=== PATIENT | female | born 1970 | race Caucasian/White ===

== ENCOUNTER 2020-11-26 12:27 | Inpatient (IN) ==
[2020-11-26] MEDS ORDERED: Orphenadrine 60 MG/2 ML VIAL IVP ONE (13:17)
[2020-11-26] MEDS ORDERED: Metoclopramide 10 MG/2 ML VIAL IVP ONE (13:17)
[2020-11-26 13:38] LABS: Basophils # 0.1 K/mcL (0.0-0.2); Basophils % 0.9 %; Eosinophils # 0.1 K/mcL (0.0-0.6); Eosinophils % 1.8 %; Hematocrit 45.8 % (35.3-44.9); Hemoglobin 14.9 g/dL (11.5-15.4); Immature Granulocytes % 0.1 % (0-4); Lymphocytes # 1.5 K/mcL (0.6-4.6); Lymphocytes % 19.1 %; Mean Corpuscular HGB Conc 32.5 g/dL (31.6-35.5); Mean Corpuscular Hemoglobin 31.8 pg (28.0-33.3); Mean Corpuscular Volume 97.9 fL (83.0-100.0); Mean Platelet Volume 10.1 fL (9.4-12.4); Monocytes # 0.5 K/mcL (0.0-1.3); Monocytes % 5.7 %; Neutrophils # 5.7 K/mcL (1.6-8.9); Platelet Count 246 K/mcL (140-400); Red Blood Count 4.68 M/mcL (3.82-4.97); Red Cell Distribution Width 12.6 % (11.5-14.5); Segmented Neutrophils % 72.4 %; White Blood Count 7.9 K/mcL (4.3-11.1)
[2020-11-26 14:08] LABS: Alanine Aminotransferase 7 Units/L (7-52); Albumin 4.7 g/dL (3.5-5.7); Albumin/Globulin Ratio 1.9 (1.1-2.2); Alkaline Phosphatase 65 Units/L (34-104); Aspartate Amino Transferase 10 Units/L (13-39); BUN/Creatinine Ratio 12 (6-26); Bilirubin,Total 0.3 mg/dL (0.3-1.0); Blood Urea Nitrogen 13 mg/dL (6-20); Calcium 9.7 mg/dL (8.6-10.3); Carbon Dioxide 25 mEq/L (23-29); Chloride 106 mEq/L (98-107); Globulin 2.5 g/dL (2.4-3.5); Glucose 97 mg/dL (70-105); Osmolality,Calculated 284 (280-300); Potassium 3.9 mEq/L (3.5-5.1); Sodium 137 mEq/L (136-145); Total Protein 7.2 g/dL (6.4-8.9); Troponin I < 0.03 ng/mL (< 0.04); eGFR For African Americans > 60 (> 60); eGFR For Non-African Americans 53 (> 60)
[2020-11-26] MEDS ORDERED: methylPREDNISolone 125 MG/2 ML VIAL IVP ONE (14:31)
[2020-11-26] MEDS ORDERED: Ondansetron 4 MG/2 ML VIAL IVP PRN (16:00)
[2020-11-26] MEDS ORDERED: Naloxone 0.4 MG/ML INJ IVP PRN (16:00)
[2020-11-26] MEDS ORDERED: Gadolinium Contrast Agent (WT Based) IV PRN (16:02)
[2020-11-26] MEDS ORDERED: *HR* LORazepam 2 MG/ML VIAL IVP ONE (18:03)
[2020-11-26] MEDS: Pantoprazole 40 MG VIAL IVP SCH (20:50)
[2020-11-26] MEDS: Melatonin 3 MG TABLET PO SCH (20:51)
[2020-11-26] MEDS: Acetaminophen/Butalbital/CaffeineTABLET PO PRN (20:52)
[2020-11-27 02:36] LABS: Bacteria,Urine Few per hpf (None-Few); Bilirubin,Urine Negative (Negative); Blood,Urine Negative (Negative); Clarity,Urine Clear (Clear); Color,Urine Light-Yellow (Yellow); Glucose,Urine (UA) >=1000 mg/dL (Normal); Ketones,Urine Negative (Negative); Leukocyte Esterase,Urine Negative (Negative); Mucus,Urine Few per lpf (None-Few); Nitrite,Urine Negative (Negative); PH,Urine 6.5 pH Units (5.0-8.0); Protein,Urine Negative (Neg-Trace); RBC,Urine 0-3 per hpf (0-3); Specific Gravity,Urine 1.014 (1.010-1.025); Squamous Epithelial Cell,Urine Few per hpf (None-Few); Urobilinogen,Urine Normal (Normal); WBC,Urine 0-3 per hpf (0-3)
[2020-11-27 02:41] LABS: Amphetamine Screen,Urine Negative ng/mL (Cutoff=1000); Barbiturate Screen,Urine Positive ng/mL (Cutoff=200); Benzodiazepines Screen,Urine Negative ng/mL (Cutoff=200); Cannabinoid Screen,Urine Negative ng/mL (Cutoff = 50); Cocaine Screen,Urine Negative ng/mL (Cutoff= 300); Opiate Screen,Urine Positive ng/mL (Cutoff=300); Phencyclidine Screen,Urine Negative ng/mL (Cutoff=25)
[2020-11-27] MEDS: Acetaminophen/Butalbital/CaffeineTABLET PO PRN ×3 (04:47→17:39)
[2020-11-27] MEDS: Pantoprazole 40 MG VIAL IVP SCH ×2 (04:47→15:48)
[2020-11-27] MEDS: *HR* Enoxaparin 40 MG/0.4 ML SYRINGE SQ SCH (04:48)
[2020-11-27 06:06] LABS: Hematocrit 47.6 % (35.3-44.9); Mean Corpuscular HGB Conc 31.5 g/dL (31.6-35.5); Mean Corpuscular Hemoglobin 32.3 pg (28.0-33.3); Mean Corpuscular Volume 102.4 fL (83.0-100.0); Mean Platelet Volume 10.5 fL (9.4-12.4); Platelet Count 231 K/mcL (140-400); Red Blood Count 4.65 M/mcL (3.82-4.97); Red Cell Distribution Width 12.5 % (11.5-14.5)
[2020-11-27 06:07] LABS: White Blood Count 13.1 K/mcL (4.3-11.1)
[2020-11-27 06:45] LABS: Alanine Aminotransferase 8 Units/L (7-52); Albumin 4.3 g/dL (3.5-5.7); Albumin/Globulin Ratio 1.7 (1.1-2.2); Alkaline Phosphatase 57 Units/L (34-104); Aspartate Amino Transferase 15 Units/L (13-39); BUN/Creatinine Ratio 14 (6-26); Bilirubin,Total 0.5 mg/dL (0.3-1.0); Blood Urea Nitrogen 14 mg/dL (6-20); Calcium 9.5 mg/dL (8.6-10.3); Carbon Dioxide 20 mEq/L (23-29); Chloride 107 mEq/L (98-107); Globulin 2.6 g/dL (2.4-3.5); Glucose 94 mg/dL (70-105); Osmolality,Calculated 280 (280-300); Potassium 4.3 mEq/L (3.5-5.1); Sodium 135 mEq/L (136-145); Thyroid Stimulating Hormone 30.155 mcIU/mL (0.340-5.600); Total Protein 6.9 g/dL (6.4-8.9); eGFR For African Americans > 60 (> 60); eGFR For Non-African Americans 58 (> 60)
[2020-11-27 09:06] LABS: Thyroid Stimulating Hormone 28.562 mcIU/mL (0.340-5.600)
[2020-11-27] MEDS ORDERED: Gadolinium Contrast Agent (WT Based) IV PRN (11:40)
[2020-11-27 13:45] LABS: Folate 14.2 ng/mL (3.0-16.0)
[2020-11-27 14:41] LABS: Red Blood Cell,CSF < 2000 RBC/mcL
[2020-11-27 14:42] LABS: Appearance,CSF Clear (Clear)
[2020-11-27] MEDS ORDERED: Acetaminophen IV 500 MG/50 ML BAG IVPB ONE (15:07)
[2020-11-27 15:08] LABS: Glucose,CSF 91 mg/dL (40-70); Total Protein,CSF 99 mg/dL (15-45)
[2020-11-27 15:52] LABS: Basophils,CSF 0 %; Eosinophils,CSF 0 %; Monocytes,CSF 0 %
[2020-11-27] MEDS ORDERED: *HR* LORazepam 2 MG/ML VIAL IVP ONE (16:18)
[2020-11-27] MEDS: Melatonin 3 MG TABLET PO SCH (21:51)
[2020-11-27] MEDS: Gabapentin 300 MG CAPSULE PO SCH (21:51)
[2020-11-27] MEDS: QUEtiapine Fumarate 100 MG TABLET PO SCH (21:52)
[2020-11-28 04:49] LABS: Basophils % 0.1 %; Hematocrit 41.5 % (35.3-44.9); Hemoglobin 13.6 g/dL (11.5-15.4); Immature Granulocytes % 0.6 % (0-4); Lymphocytes # 1.2 K/mcL (0.6-4.6); Lymphocytes % 7.6 %; Mean Corpuscular HGB Conc 32.8 g/dL (31.6-35.5); Mean Corpuscular Hemoglobin 31.9 pg (28.0-33.3); Mean Corpuscular Volume 97.4 fL (83.0-100.0); Mean Platelet Volume 10.5 fL (9.4-12.4); Monocytes # 0.8 K/mcL (0.0-1.3); Monocytes % 4.8 %; Neutrophils # 13.7 K/mcL (1.6-8.9); Platelet Count 241 K/mcL (140-400); Red Blood Count 4.26 M/mcL (3.82-4.97); Red Cell Distribution Width 12.6 % (11.5-14.5); Segmented Neutrophils % 86.9 %; White Blood Count 15.8 K/mcL (4.3-11.1)
[2020-11-28 05:06] LABS: BUN/Creatinine Ratio 14 (6-26); Blood Urea Nitrogen 13 mg/dL (6-20); Calcium 9.3 mg/dL (8.6-10.3); Carbon Dioxide 23 mEq/L (23-29); Chloride 109 mEq/L (98-107); Glucose 101 mg/dL (70-105); Osmolality,Calculated 288 (280-300); Potassium 3.7 mEq/L (3.5-5.1); Sodium 139 mEq/L (136-145); eGFR For African Americans > 60 (> 60); eGFR For Non-African Americans > 60 (> 60)
[2020-11-28] MEDS: *HR* Enoxaparin 40 MG/0.4 ML SYRINGE SQ SCH (06:39)
[2020-11-28] MEDS: Pantoprazole 40 MG VIAL IVP SCH ×2 (06:39→16:22)
[2020-11-28] MEDS: Acetaminophen/Butalbital/CaffeineTABLET PO PRN ×2 (06:52→16:29)
[2020-11-28] MEDS: Cyanocobalamin (B-12) 1,000 MCG/ML VIAL IM SCH (07:43)
[2020-11-28] MEDS: Gabapentin 300 MG CAPSULE PO SCH ×3 (07:43→20:30)
[2020-11-28] MEDS: (Vilazodone Hcl [Viibryd] 20 MG Tablet) PO SCH (08:40)
[2020-11-28] MEDS ORDERED: Acetaminophen IV 500 MG/50 ML BAG IVPB ONE (10:45)
[2020-11-28] MEDS: QUEtiapine Fumarate 100 MG TABLET PO SCH (20:30)
[2020-11-28] MEDS: Melatonin 3 MG TABLET PO SCH (20:30)
[2020-11-29] MEDS: Acetaminophen/Butalbital/CaffeineTABLET PO PRN (05:54)
[2020-11-29] MEDS: *HR* Enoxaparin 40 MG/0.4 ML SYRINGE SQ SCH (05:55)
[2020-11-29] MEDS: Pantoprazole 40 MG VIAL IVP SCH (05:55)
[2020-11-29 06:01] LABS: Basophils % 0.1 %; Eosinophils % 0.1 %; Hematocrit 42.7 % (35.3-44.9); Hemoglobin 13.9 g/dL (11.5-15.4); Immature Granulocytes % 0.4 % (0-4); Lymphocytes # 1.9 K/mcL (0.6-4.6); Lymphocytes % 14.3 %; Mean Corpuscular HGB Conc 32.6 g/dL (31.6-35.5); Mean Corpuscular Hemoglobin 32.1 pg (28.0-33.3); Mean Corpuscular Volume 98.6 fL (83.0-100.0); Mean Platelet Volume 10.4 fL (9.4-12.4); Monocytes # 0.7 K/mcL (0.0-1.3); Monocytes % 4.9 %; Neutrophils # 10.9 K/mcL (1.6-8.9); Platelet Count 218 K/mcL (140-400); Red Blood Count 4.33 M/mcL (3.82-4.97); Red Cell Distribution Width 12.4 % (11.5-14.5); Segmented Neutrophils % 80.2 %; White Blood Count 13.6 K/mcL (4.3-11.1)
[2020-11-29 06:45] VITALS: BP 148/80
[2020-11-29] MEDS: Gabapentin 300 MG CAPSULE PO SCH (07:43)
[2020-11-29] MEDS: (Vilazodone Hcl [Viibryd] 20 MG Tablet) PO SCH (07:44)
[2020-11-29] MEDS: Cyanocobalamin (B-12) 1,000 MCG/ML VIAL IM SCH (07:51)
[2020-11-29 14:46] LABS: ANA IgG by ELISA NONE DETECTED (None Detected)
[2020-11-30 18:15] LABS: Albumin Index 13.5 ratio (0.0-9.0); IgG CSF 7.6 mg/dL (0.0-6.0)
[2020-12-01 03:00] LABS: APTT (LE Anticoag) 42 sec (32-48); Diluted Russell Viper Venom 26 sec (33-44); PT (LE-Anticoag) 12.4 sec (12.0-15.5)
[2020-12-01 08:33] LABS: IgG Serum 1005 mg/dL (768-1632)
== END 2020-11-29 12:52 | disposition home health service (06) | DRG 60 ==
LOC: 3BNU 12:27 → EMEROOARM 12:27 → 3BNU 18:51
PROVIDERS: ADMIT Internal Medicine; ATTEND Internal Medicine